=== PATIENT | female | born 1990 | race American Indian/Alaskan Native ===

== ENCOUNTER 2022-04-29 03:51 | Inpatient (IN) | payer MEDICAID, OTHER ==
[2022-04-29] MEDS ORDERED: BUTORPHANOL 2 MG/1 ML INJ IV PRN (04:32)
[2022-04-29] MEDS ORDERED: OXYTOCIN 10 UNIT/1 ML INJ IM PRN (04:32)
[2022-04-29] MEDS ORDERED: LIDOCAINE (2%) 20 MG/1 ML VIAL 20 ML MDV INFILTRATI ONE ×2 (04:32→11:00)
[2022-04-29] MEDS ORDERED: miSOPROStol 200 MCG TAB PR PRN (04:32)
[2022-04-29] MEDS ORDERED: ePHEDrine SULFATE 50 MG/1 ML INJ IV PRN (04:32)
[2022-04-29] MEDS ORDERED: CARBOPROST TROMETHAMINE 250 MCG/1 ML INJ IM PRN (04:32)
[2022-04-29] MEDS ORDERED: MINERAL OIL 30 ML ORAL LIQD PO PRN (04:32)
[2022-04-29] MEDS ORDERED: METHYLERGONOVINE MALEATE 0.2 MG/ML VIAL IM PRN (04:32)
[2022-04-29] MEDS ORDERED: ACETAMINOPHEN 325 MG TAB PO PRN ×2 (04:32→13:57)
[2022-04-29] MEDS ORDERED: TERBUTALINE 1 MG/1 ML INJ SUB-Q PRN (04:32)
[2022-04-29] MEDS ORDERED: ONDANSETRON 4 MG/2 ML INJ IV PRN ×2 (04:32→13:57)
[2022-04-29] MEDS ORDERED: LOPERAMIDE 2 MG CAP PO PRN (04:32)
[2022-04-29] MEDS ORDERED: LACTATED RINGERS 1,000 ML IV SCH (04:45)
[2022-04-29] MEDS ORDERED: OXYTOCIN DRIP 30 UNITS/500 ML BAG IV SCH ×3 (05:00→13:57)
[2022-04-29] MEDS ORDERED: PENICILLIN G POTASSIUM 2.5 MIL.UNITS in SODIUM CHLORIDE 0.9% 50 ML IV SCH (05:00)
[2022-04-29 05:11] LABS: Hematocrit 36.6 % (30.3-42.9); Hemoglobin 12.1 gm/dl (10.1-14.3); Mean Corpuscular HGB Conc 33 % (30-34); Mean Corpuscular Volume 83 fl (79-97); Platelet Count 239 K/mm3 (140-440); Red Blood Count 4.43 M/mm3 (3.65-5.03); Red Cell Distribution Width 15.6 % (13.2-15.2)
[2022-04-29] MEDS: fentaNYL 100 MCG/2 ML INJ IV PRN ×3 (06:26→09:10)
--- NOTE | 2022-04-29 06:29 | Event Note ---
Date: 04/29/22
--- NOTE | 2022-04-29 07:09 | History and Physical Report ---
History of Present Illness Date of examination: 04/29/22 Date of admission: 04/29/22 04:32 Chief complaint: Labor. History of present illness: States she's has received PNC with Dr. Marianela Salgado( see event note). Records still not available. She presented to [facility] b/c she was told [facility] is on diversion. She started having contractions ~1am. 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: denies: chlamydia, gonorrhea, hepatitis B, hepatitis C, herpes, HIV, syphilis, trichomonas Social history: no significant social history - Obstetrical History Expected Date of Delivery: 04/29/22 Actual Gestation: 40 Week(s) 0 Day(s) : 4 (no problems or complications with this ) Para: 3 (all vaginal, no complications with any pregnancies) Number of Living Children: 3 Medications and Allergies Allergies Allergy/AdvReac Type Severity Reaction Status Date / Time No Known Allergies Allergy Unverified 05/01/15 17:22 Home Medications Medication Instructions Recorded Confirmed Last Taken Type No Known Home Medications [No 05/01/15 05/01/15 Unknown History Reported Home Medications] Active Meds: Active Medications Acetaminophen (Acetaminophen 325 Mg Tab) 650 mg PO Q4H PRN PRN Reason: Pain, Mild (1-3) Butorphanol Tartrate (Butorphanol 2 Mg/1 Ml Inj) 1 mg IV Q2H PRN PRN Reason: Pain, Moderate(4-6) LABOR PAIN Carboprost Tromethamine (Carboprost Tromethamine 250 Mcg/1 Ml Inj) 250 mcg IM ONCE PRN PRN Reason: Uterine Bleeding Ephedrine Sulfate (Ephedrine Sulfate 50 Mg/1 Ml Inj) 10 mg IV Q2M PRN PRN Reason: Hypotension Fentanyl (Fentanyl 100 Mcg/2 Ml Inj) 100 mcg IV Q2H PRN PRN Reason: Pain,Severe (7-10) LABOR PAIN Last Admin: 04/29/22 06:26 Dose: 100 mcg Oxytocin/Sodium Chloride (Pitocin/Ns 30 Unit/500ml) 30 units in 500 mls @ 2 mls/hr IV TITR SHERITA; Protocol Lactated Ringer's (Lactated Ringers) 1,000 mls @ 125 mls/hr IV DIRECT SHERITA Last Admin: 04/29/22 05:53 Dose: 125 mls/hr Oxytocin/Sodium Chloride (Pitocin/Ns 30 Unit/500ml) 30 units in 500 mls @ 40 mls/hr IV TITR SHERITA; Protocol Penicillin G Potassium 2.5 mil (.units/ Sodium Chloride) 50 mls @ 100 mls/hr IV Q4H SHERITA; Protocol Last Admin: 04/29/22 05:52 Dose: 100 mls/hr Loperamide HCl (Loperamide 2 Mg Cap) 2 mg PO ONCE PRN PRN Reason: give with Hemabate Methylergonovine Maleate (Methylergonovine Maleate 0.2 Mg/Ml Vial) 0.2 mg IM ONCE PRN PRN Reason: Uterine Bleeding Mineral Oil (Mineral Oil 30 Ml Oral Liqd) 30 ml PO QHS PRN PRN Reason: Constipation Misoprostol (Misoprostol 200 Mcg Tab) 800 mcg NM ONCE PRN PRN Reason: Uterine Bleeding Ondansetron HCl (Ondansetron 4 Mg/2 Ml Inj) 4 mg IV Q8H PRN PRN Reason: Nausea And Vomiting Oxytocin (Oxytocin 10 Unit/1 Ml Inj) 10 unit IM ONCE PRN PRN Reason: Uterine Bleeding Terbutaline Sulfate (Terbutaline 1 Mg/1 Ml Inj) 0.25 mg SUB-Q ONCE PRN PRN Reason: Hyperstimulation/Hypertonicity Review of Systems All systems: negative - Vital Signs Vital signs: Vital Signs Pulse Pulse Ox 67 99 04/29/22 04:08 04/29/22 04:08 Temp Pulse Resp BP Pulse Ox 97.9 F 69 16 135/63 99 04/29/22 05:27 04/29/22 07:00 04/29/22 06:26 04/29/22 05:26 04/29/22 07:00 - Physical Exam Breasts: Positive: deferred - Obstetrical FHR: category 1 Cervical Dilatation: 4 (per RN) Uterine Contraction Frequency (min): 2-4mins Results Result Diagrams: 04/29/22 04:45 Abnormal lab results 04/29/22 Range/Units 04:45 MCH 27 L (28-32) pg RDW 15.6 H (13.2-15.2) % All other labs normal. Assessment and Plan - Patient Problems (1) 40 weeks gestation of Current Visit: Yes Status: Acute Plan to address problem: Will attempt to obtain records Anticipate vaginal delivery (2) Active labor at term Current Visit: Yes Status: Acute
[2022-04-29 09:04] LABS: Hepatitis C Virus Antibody Non-Reactive (NonReactive)
--- NOTE | 2022-04-29 09:28 | Event Note ---
Date: 04/29/22 Patient lying in bed without complaint. Introduced myself to patient as on-call provider. Plan of care reviewed. Anticipate .
[2022-04-29] MEDS ORDERED: miSOPROStol 200 MCG TAB ONE (09:48)
[2022-04-29] MEDS ORDERED: miSOPROStol 100 MCG TAB PR ONE (11:00)
--- NOTE | 2022-04-29 11:18 | Procedure Note ---
OB Delivery Note - Vaginal Delivery presentation: vertex Delivery position: OA Intrapartum events: none Delivery induction: none Delivery monitor: external FHT, external uterine Route of delivery: Delivery placenta: spontaneous Delivery cord: 3 umbilical vessels Episiotomy: none Delivery laceration: 1st degree Delivery repair: vicryl Anesthesia: local Delivery comments: To patient room for desire to push. Patient complete and . After two pushes, delivered. Cord clamped and cut and taken to [facility] evaluation. Placenta delivered spontaneously and intact6. 1st degree lac noted and repaired with figure of eight using 2-0 vicryl. Bladder drained. Cytotec 800 mcg given AR. Patient and mother remain in delivery room in stable condition. - A at 1 minute: 8 at 5 minutes: 9 Infant Gender: Female (2630g)
[2022-04-29] MEDS ORDERED: LANOLIN/ZINC/DIMETHICONE (LANSINOH) 7 GM TP PRN (13:57)
[2022-04-29] MEDS ORDERED: oxyCODONE /ACETAMINOPHEN 5-325MG TAB PO PRN (13:57)
[2022-04-29] MEDS ORDERED: MAGNESIUM HYDROXIDE (MOM) ORAL LIQD UDC PO PRN (13:57)
[2022-04-29] MEDS ORDERED: PROMETHAZINE 25 MG RECT SUPP PR PRN (13:57)
[2022-04-29] MEDS ORDERED: WITCH HAZEL/ GLYCERIN PAD TP PRN (13:57)
[2022-04-29] MEDS ORDERED: diphenhydrAMINE 25 MG CAP PO PRN (13:57)
[2022-04-29] MEDS ORDERED: PROMETHAZINE 25 MG TAB PO PRN (13:57)
[2022-04-29] MEDS ORDERED: IBUPROFEN 800 MG TAB PO SCH (15:00)
[2022-04-29 18:46] LABS: Amphetamine Screen,Urine Negative; Benzodiazepines Screen,Urine Negative; Cannabinoid Screen,Urine Negative; Cocaine Screen,Urine Negative; Methadone Screen,Urine Negative; Opiate Screen,Urine Negative
[2022-04-29] MEDS ORDERED: DOCUSATE SODIUM 100 MG CAP PO SCH (22:00)
[2022-04-30 00:58] LABS: Hematocrit 30.7 % (30.3-42.9); Hemoglobin 9.7 gm/dl (10.1-14.3)
[2022-04-30] MEDS ORDERED: PRENATAL VIT27-FE FUMARATE-FOLIC ACID VIT TAB PO SCH (10:00)
--- NOTE | 2022-04-30 12:14 | Discharge Summary ---
Providers - Providers Date of Admission: 04/29/22 04:32 Date of discharge: 04/30/22 Attending physician: SHAMAR CERVANTES Primary care physician: CLAR[employer]IER OPERATOR Hospitalization Reason for admission: active labor Condition: Good Hospital course: Patient presented in active labor at 40w0d. S/p with first degree laceration, repaired. COVID +, but asymptomatic. Routine care. Vitals signs remained stable and hemoglobin 9.7. Baby at bedside doing well. Requests to go home. Stable for discharge on PPD #1 Disposition: 01 HOME / SELF CARE / HOMELESS Final Discharge Diagnosis (Prints w/discharge instructions): s/p - Discharge Diagnoses (1) (spontaneous vaginal delivery) Status: Acute (2) COVID-19 Status: Acute Core Measure Documentation - Palliative Care Palliative Care/ Comfort Measures: Not Applicable - Core Measures Any of the following diagnoses?: none Exam - Constitutional Vitals: Temp Pulse Resp BP Pulse Ox 98.9 F 83 18 130/60 99 04/30/22 10:35 04/30/22 10:35 04/30/22 10:35 04/30/22 10:35 04/30/22 10:35 General appearance: Present: no acute distress, well-nourished - Respiratory Respiratory effort: normal - Extremities Extremities: pulses symmetrical, No edema - Abdominal General gastrointestinal: Present: soft, non-tender, other (fundus firm at umbilicus) Female genitourinary: Present: normal, other (lac well-approximated) - Integumentary Integumentary: Present: clear, warm, dry Plan Activity: other (pelvic rest for 6 weeks. (Nothing in the vagina)) Weight Bearing Status: Full Weight Bearing Diet: regular Wound: keep clean and dry Care Plan Goals: [] Smoking cessation referral if applicable(refer to patient education folder for contact #) [] Refer to [facility] Booklet Call your doctor immediately for: * Fever > 100.5 * Heavy vaginal bleeding ( >1 pad per hour) * Severe persistent headache * Shortness of breath * Reddened, hot, painful area to leg or breast * Drainage or odor from incision. * Keep incision clean and dry at all times and follow doctor's instructions regarding bathing/showering Follow up with: VERNELL GORDON MD [Staff Physician] - 7 Days PRIMARY CARE, [Primary Care Provider] - 7 Days Prescriptions: Docusate Sodium [Colace] 100 mg PO BID #60 capsule Ferrous Sulfate [Feosol 325 MG tab] 325 mg PO QDAY #30 tablet Ibuprofen [Motrin 800 MG tab] 800 mg PO Q8HR #30 tablet Vit-Fe Fumar-FA [ Vitamin] 1 tab PO QDAY #30 tablet
[2022-04-30 17:36] VITALS: BP 126/68
== END 2022-04-30 17:00 | disposition home or self-care (01) | DRG 774 ==
LOC: TRG 03:51 → APU 03:52 → LD 04:32 → TRG 04:32 → OB 13:04
PROVIDERS: ADMIT Obstetrics & Gynecology; ATTEND Obstetrics & Gynecology
PROC: 10E0XZZ Delivery of Products of Conception, External Approach (ICD-10-PCS; principal; 2022-04-29)
PROC: 0HQ9XZZ Repair Perineum Skin, External Approach (ICD-10-PCS; 2022-04-29)
DX: O98.52 Other viral diseases complicating childbirth (principal); U07.1 COVID-19; Z3A.40 40 weeks gestation of pregnancy; Z37.0 Single live birth; O70.0 First degree perineal laceration during delivery
CPT/HCPCS: 36415; 59025; 80307; 85014; 85018; 85027; 86592; 86706; 86762; 86803; 86850; 86900; 86901; 87529; 87806; 88307; G0378; J2540; J2590; J3010; J7120; U0003